=== PATIENT | female | born 1990 | race Hispanic/Latino ===

== ENCOUNTER → 2023-05-22 | Day surgery (SDC) | payer OTHER ==
[~2023-05-22] MED LIST: DEXMEDETOMIDINE HCL 200 MCG/2 ML VIAL ONE; FENTANYL CITRATE/PF 100MCG/2 ML INJ ONE; LIDOCAINE HCL 2% LOCAL INJ 5 ML SDV VIAL INJ ONE; MIDAZOLAM HCL 2 MG/2 ML VIAL ONE; PROPOFOL IV EMULSION 10 MG/ML 20 ML VIAL ONE
[2023-05-22] MEDS: LACTATED RINGER'S 1,000 ML ONE (13:04)
[2023-05-22 14:32] VITALS: TEMP 98
[2023-05-22 15:00] VITALS: BP 96/57; PULSE 60; RESP 16; O2SAT 100
[2023-05-22 15:24] LABS: WBC,FECAL (FECAL LACTOFERRIN) NEGATIVE (NEGATIVE)
[2023-05-25 12:13] LABS: ENDOMYSIAL ANTIBODIES, IGA Negative (Negative)
[2023-05-25 14:10] LABS: IMMUNOGLOBULIN A 225 mg/dL (87-352); TISSUE TRANSGLUTAMINASE IGA AB <2 U/mL (0-3)
== END | disposition home or self-care (01) ==
LOC: OR 11:36 → EDBD 13:30
PROVIDERS: ATTEND Internal Medicine Gastroenterology
DX: D64.89 Other specified anemias (principal); K52.9 Noninfective gastroenteritis and colitis, unspecified; K62.89 Other specified diseases of anus and rectum; K57.30 Diverticulosis of large intestine without perforation or abscess without bleeding; K64.8 Other hemorrhoids; Z71.3 Dietary counseling and surveillance; Z68.31 Body mass index [BMI] 31.0-31.9, adult
CPT/HCPCS: 45380; 81025; 82784; 83516; 83630; 83993; 86256; 87045; 87177; 87324; 87328; 87449; J2001; J2250; J2704; J3010; J7121; 45378